=== PATIENT | male | born 1985 | race Two or more races ===

== ENCOUNTER 2018-05-19 22:07 | Emergency (ER) | payer BC, SELFPAY ==
[2018-05-19 22:08] VITALS: BP 118/70; PULSE 88; RESP 14; TEMP 36.7; O2SAT 97; BMI 23.2
--- NOTE | 2018-05-19 22:20 | RAD_ITS ---
STUDY: X-RAY - RIGHT HAND REASON FOR EXAM: Male, 32 years old. Thumb injury TECHNIQUE: 3 view(s) of the hand. COMPARISON: None. FINDINGS: Normal radiocarpal articulation. Normal distal radioulnar joint. Normal visualized carpal bones. Normal carpal articulations Normal carpometacarpal articulation of the thumb. Normal second through fifth carpometacarpal joints. Normal metacarpi. Normal metacarpophalangeal joint of the thumb. Normal interphalangeal joint of the thumb. Normal proximal and distal phalanges of the thumb. Normal metacarpophalangeal joints of the second through fifth fingers. Normal proximal and distal interphalangeal joints of the second through fifth fingers. Normal phalanges of the second through fifth fingers. The soft tissue structures are unremarkable. RAD/Hand Min 3 Views IMPRESSION: Normal x-ray examination of the hand. Electronically Signed: Cristobal Browning MD at 22:39 EDT , Service support ,
--- NOTE | 2018-05-19 23:55 | ED.DCSUM_ITS ---
- ER Visit Summary Date of Service: 05/19/18 Chief Complaint: Right thumb pain History of Present Illness: The patient is a 32 M with no primary care physician. Reports that today he was playing volleyball and stoved his right thumb on the ball. He reports he has pain that is throbbing in 3-10 severity. Is worsened by movement. Is not taking anything for this. He is right-hand dominant. He denies any other injuries or complaints. Physical Examination: Vitals: Stable. Afebrile. General: Well-nourished and well-developed. Head: Normocephalic atraumatic. Neck: Supple, no lymphadenopathy. No JVD. Nontender. Cardiovascular: Regular rate and rhythm. No murmurs. Respiratory: No respiratory distress. Clear to auscultation bilaterally. Abdominal: Soft, nontender, nondistended, normal bowel sounds. No guarding, rebound, or peritoneal signs. Back: Nontender. Extremities: Moderate tenderness palpation over the right first metacarpal. He has no pain over the ulnar collateral ligament of the MCP joint. No pain over the proximal or distal phalange ease. He is neurovascular intact. He is able to flex and extend against resistance. Neurologic: Alert and oriented ?3. Cranial nerves II through XII are intact. Normal strength and sensation. Psych: Normal affect. Test Results: Right thumb x-ray is negative. Emergency Department Course and Treatment: Patient was treated with naproxen and placed in a Velcro thumb spica splint. Treatment Plan: Patient be discharged naproxen. Instructed to follow-up Dr. Collier in 1 week if not improving. Disposition: To home in improved and stable condition. Impression: 1. Right thumb sprain. This note was generated with [employer] dictation software. It may contain incorrect words, spelling, and punctuation that were not noted in review of the chart prior to signing ED Disposition - Plan for ED Patient: Disposition: Home or Assisted Living Chief Complaint: Upper Extremity Injury Instructions: ED Crush Injury Finger No Fx Prescriptions: Naproxen [Naprosyn] 500 mg PO BID #14 tablet Referrals: Rosie Collier DO [STAFF PHYSICIAN] - 1 Week if not improving
[2018-05-20] MEDS: Naproxen 250 MG Tablet 500 MG PO (00:10)
== END 2018-05-20 00:15 | disposition home or self-care (01) ==
PROVIDERS: Emergency Provider Emergency Medicine
DX: S63.601A Unspecified sprain of right thumb, initial encounter (principal); W22.8XXA Striking against or struck by other objects, initial encounter; Y93.68 Activity, volleyball (beach) (court); Y92.9 Unspecified place or not applicable; Y99.8 Other external cause status
CPT/HCPCS: 73130; 99283